=== PATIENT | female | born 1990 | race Caucasian/White ===

== ENCOUNTER 2022-12-15 09:12 | Inpatient (IN) | payer BC ==
[2022-12-14 10:09] LABS: Hematocrit 36.6 % (34.9-44.5); Hemoglobin 12.4 g/dL (12.0-15.5); Platelet Count 187 10x3/uL (150-450)
[2022-12-14 10:41] LABS: Syphilis Antibody Nonreactive (Nonreactive); Syphilis Antibody Index 0.02 S/CO (<1.00 Non-Reactive)
[2022-12-14 10:42] LABS: HBSAg Index 0.15 S/CO (0-0.99); Hep B Surf Ag Non-Reactive S/CO (NonReactive)
[2022-12-15] MEDS ORDERED: Promethazine HCl 25 MG/ML VIAL IM PRN ×3 (09:42→15:10)
[2022-12-15] MEDS ORDERED: hydrALAZINE 20 MG/ML VIAL SLOW IVP PRN ×2 (09:42→15:10)
[2022-12-15] MEDS ORDERED: Methylergonovine 0.2 MG/ML VIAL IM PRN (09:42)
[2022-12-15] MEDS ORDERED: Misoprostol 200 MCG TAB PR PRN (09:42)
[2022-12-15] MEDS ORDERED: Bicitra 30 ML UDCUP PO PRN (09:42)
[2022-12-15] MEDS ORDERED: Carboprost 250 MCG/ML AMP IM PRN (09:42)
[2022-12-15] MEDS ORDERED: Diphenoxylate HCl/Atropine Tablet PO PRN ×2 (09:42→23:45)
[2022-12-15] MEDS ORDERED: Ondansetron PF 4 MG/2 ML Vial IVP PRN ×3 (09:42→15:10)
[2022-12-15] MEDS ORDERED: Famotidine/PF 20 mg/2ml Vial SLOW IVP PRN (09:42)
[2022-12-15] MEDS ORDERED: CEFAZOLIN 2 GM in Sodium Chloride 0.9% 100 ML IVPB SCH (09:45)
[2022-12-15] MEDS ORDERED: Lactated Ringer's 1,000 ML IV SCH (09:45)
[2022-12-15] MEDS ORDERED: NS w/ Oxytocin 30 units 500 ML IV SCH (09:45)
[2022-12-15 10:37] VITALS: BMI 28.3
[2022-12-15] MEDS ORDERED: ePHEDrine Sulfate 50 MG/10 ML VIAL ONE (10:52)
[2022-12-15] MEDS ORDERED: Morphine PF 10 MG/10 ML VIAL ONE (10:52)
[2022-12-15] MEDS ORDERED: Ondansetron PF 4 MG/2 ML Vial ONE (10:53)
[2022-12-15] MEDS ORDERED: Oxytocin 10 UNITS/ML VIAL ONE (10:53)
[2022-12-15] MEDS ORDERED: Phenylephrine 40 MG/NS 250 ML 250 ML ONE (10:53)
[2022-12-15] MEDS ORDERED: Ketorolac Tromethamine 30 MG/ML VIAL ONE (10:53)
[2022-12-15] MEDS ORDERED: PHENYLEPHRINE-NS 100 MCG/ML 10 ML SYRINGE ONE (10:53)
[2022-12-15] MEDS ORDERED: Moisturizing Cream (Eucerin) 113 GM JAR TOP PRN (11:37)
[2022-12-15] MEDS ORDERED: Promethazine HCl 25 MG SUPP PR PRN (11:37)
[2022-12-15] MEDS ORDERED: Ondansetron HCl/PF 4 MG/2 ML Vial IVP PRN (11:37)
[2022-12-15] MEDS ORDERED: Naloxone HCl 0.4 mg/ml Vial IVP PRN ×2 (11:37)
[2022-12-15] MEDS ORDERED: Meperidine HCl/PF 25 MG/ML VIAL SLOW IVP PRN (11:37)
[2022-12-15] MEDS ORDERED: Fentanyl 50 MCG/1 ML VIAL SLOW IVP PRN (11:37)
[2022-12-15] MEDS ORDERED: diphenhydrAMINE 50 MG/ML VIAL IVP PRN (11:37)
[2022-12-15] MEDS ORDERED: Naloxone HCl 0.4 mg/ml Vial IV PRN (11:37)
[2022-12-15] MEDS ORDERED: Communication Order-Pharmacy FS SCH (11:45)
[2022-12-15] MEDS ORDERED: diphenhydrAMINE 25 MG CAP PO PRN (15:10)
[2022-12-15] MEDS ORDERED: Acetaminophen 325 MG TAB PO PRN (15:10)
[2022-12-15] MEDS ORDERED: Boostrix 0.5 ML (Tdap) VIAL (>/=7 yrs of age) IM ONE (15:10)
[2022-12-15] MEDS ORDERED: Lanolin Ointment 7 GM TUBE TOP PRN (15:10)
[2022-12-15] MEDS ORDERED: Bisacodyl 10 MG SUPP PR PRN (15:10)
[2022-12-15] MEDS: Ketorolac Tromethamine 30 MG/ML VIAL IVP PRN ×2 (18:27→23:46)
[2022-12-15] MEDS: Ferrous Sulfate 325 MG TAB PO SCH (19:10)
[2022-12-15] MEDS ORDERED: Ketorolac Tromethamine 30 MG/ML VIAL IVP SCH (19:30)
[2022-12-15] MEDS: Simethicone Chewable 80 MG TAB PO PRN ×2 (20:05→23:47)
[2022-12-15] MEDS: Docusate 100 MG CAP PO SCH (20:05)
[2022-12-15] MEDS ORDERED: Zolpidem Tartrate 5 MG TAB PO PRN (23:59)
[2022-12-15] MEDS ORDERED: HYDROcodone/Acetaminophen 5/325 mg Tablet PO PRN (23:59)
[2022-12-16 04:21] LABS: Hemoglobin 11.7 g/dL (12.0-15.5); Mean Corpuscular HGB CONC 33.4 g/dL (32.0-36.0); Mean Corpuscular Hemoglobin 30.5 pg (27.0-33.0); Mean Corpuscular Volume 91.4 fl (81.6-98.3); Mean Platelet Volume 11.7 fl (7.4-10.4); Platelet Count 177 10x3/uL (150-450); RBC Distribution Width 12.8 % (11.5-14.5); Red Blood Cell (RBC) Count 3.83 10x6/uL (3.90-5.03); White Blood Cell (WBC) Count 10.6 10x3/uL (3.5-10.5)
[2022-12-16] MEDS: HYDROcodone/Acetaminophen 5/325 mg Tablet PO PRN ×3 (05:05→23:46)
[2022-12-16] MEDS: Ketorolac Tromethamine 30 MG/ML VIAL IVP PRN (05:05)
[2022-12-16] MEDS: Simethicone Chewable 80 MG TAB PO PRN (05:06)
[2022-12-16] MEDS: Docusate 100 MG CAP PO SCH ×2 (08:32→21:16)
[2022-12-16] MEDS: Prenatal Vitamin 1 TAB PO SCH (08:32)
[2022-12-16] MEDS: Ferrous Sulfate 325 MG TAB PO SCH ×2 (08:33→19:11)
[2022-12-16] MEDS ORDERED: Ibuprofen 800 MG TAB ONE (21:15)
[2022-12-17] MEDS ORDERED: Ibuprofen 800 MG TAB PO SCH ×2 (01:00→06:00)
[2022-12-17] MEDS: HYDROcodone/Acetaminophen 5/325 mg Tablet PO PRN (06:30)
[2022-12-17 08:00] VITALS: BP 124/81; TEMP 98.2
[2022-12-17] MEDS: Prenatal Vitamin 1 TAB PO SCH (08:16)
[2022-12-17] MEDS: Ferrous Sulfate 325 MG TAB PO SCH (08:16)
[2022-12-17] MEDS: Docusate 100 MG CAP PO SCH (08:16)
== END 2022-12-17 12:30 | disposition home or self-care (01) | DRG 788 ==
LOC: CSHLD 09:55 → CSHPP 15:25
PROVIDERS: ADMIT Student in an Organized Health Care Education/Training Program; ATTEND Student in an Organized Health Care Education/Training Program
PROC: 10D00Z1 Extraction of Products of Conception, Low, Open Approach (ICD-10-PCS; principal; 2022-12-15)
PROC: 3E033VJ Introduction of Other Hormone into Peripheral Vein, Percutaneous Approach (ICD-10-PCS; 2022-12-15)
DX: O34.211 Maternal care for low transverse scar from previous cesarean delivery (principal); Z37.0 Single live birth; Z3A.39 39 weeks gestation of pregnancy
CPT/HCPCS: 51702; 85014; 85018; 85027; 85049; 86780; 86850; 86900; 86901; 87340; J1200; J1885; J2274; J2405; J2590